=== PATIENT | male | born 2000 | race Caucasian/White ===

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

== ENCOUNTER 2022-08-14 01:00 | Inpatient (IN) | payer MEDICAID ==
[~2022-08-14] VITALS: Ht 175.3 cm; Wt 59.9 kg
[2022-08-14] MEDS ORDERED: MORPHINE SULFATE 4 MG/ML CPJ (NOT FOR IM USE) IV STA (01:08)
[2022-08-14] MEDS ORDERED: ONDANSETRON HCL 4MG/2ML INJ IV STA (01:08)
[2022-08-14] MEDS ORDERED: SODIUM CHLORIDE 0.9% 1,000 ML IV ONE (01:15)
[2022-08-14] MEDS ORDERED: CEFAZOLIN 1000MG PREMIX 50 ML IV ONE (01:15)
[2022-08-14] MEDS ORDERED: LIDOCAINE HCL 1% 20ML VIAL (Pyxis) INJ INFIL ONE (01:15)
[2022-08-14] MEDS ORDERED: BACITRACIN ZINC OINT UDPKT TOP ONE (01:15)
[2022-08-14] MEDS ORDERED: TETANUS, DIPHTHERIA, PERTUSSIS VAC/PF 0.5ML (>10YR OLD) IM ONE (01:15)
[2022-08-14 01:46] LABS: CHLORIDE 111 mEq/L (98-107)
[2022-08-14] MEDS ORDERED: FENTANYL CITRATE/PF 50MCG/ML 2ML VIAL IV NR (02:30)
[2022-08-14] MEDS ORDERED: FENTANYL CITRATE/PF 50MCG/ML 2ML VIAL IV ONE (02:30)
[2022-08-14 03:03] LABS: BASOPHILS % 0.3 % (0.0-2.0); EOSINOPHILS % 0.4 % (0.0-5.0); HEMATOCRIT. 46.2 % (42.0-52.0); HEMOGLOBIN. 15.3 g/dL (14.0-18.0); MEAN CORPUSCULAR HEMOGLOBIN 31.4 pg (28.0-32.0); MEAN CORPUSCULAR VOLUME 94.6 fL (80.0-94.0); MONOCYTES % 3.6 % (2.0-8.0); NEUTROPHILS % 79.7 % (40.0-76.0); PLATELET 256 x1000/uL (130-400); RED BLOOD CELL COUNT 4.88 mill/uL (4.7-6.1); RED CELL DISTRIBUTION WIDTH 12.6 % (11.6-14.6)
[2022-08-14] MEDS ORDERED: IPRATROPIUM/ALBUTEROL 0.5-3(2.5)MG/3ML NEB HHN PRN (08:15)
[2022-08-14] MEDS ORDERED: MAGNESIUM/ALUMINUM HYDROXIDE/SIMETHICONE 30ML UDC PO PRN (08:15)
[2022-08-14] MEDS ORDERED: ONDANSETRON HCL 4MG/2ML INJ IV PRN ×3 (08:15→19:00)
[2022-08-14] MEDS ORDERED: ACETAMINOPHEN 325MG TABLET PO PRN ×2 (08:15)
[2022-08-14] MEDS ORDERED: GUAIFENESIN 200MG/10ML SUGAR FREE UDC PO PRN (08:15)
[2022-08-14] MEDS ORDERED: DOCUSATE SODIUM 100MG CAPSULE PO PRN (08:15)
[2022-08-14] MEDS ORDERED: LORAZEPAM 2MG/ML CPJ IV PRN (08:15)
[2022-08-14] MEDS ORDERED: CLONIDINE 0.1MG TABLET PO PRN (08:15)
[2022-08-14] MEDS ORDERED: NALOXONE HCL 0.4MG/ML VIAL IV PRN (08:30)
[2022-08-14] MEDS: MORPHINE SULFATE 2 MG/ML CPJ (NOT FOR IM USE) IV PRN ×2 (09:28→14:04)
[2022-08-14] MEDS ORDERED: SKIN ADHESIVE 0.7 GM EA TOP ONE (14:51)
[2022-08-14] MEDS ORDERED: VANCOMYCIN HCL 1 GM/VIAL ONE (14:51)
[2022-08-14] MEDS ORDERED: LIDOCAINE HCL/EPINEPHRINE 1%-EPI 1:100,000 20 ML VIAL ONE (14:51)
[2022-08-14] MEDS ORDERED: POLYMYXIN B SULFATE 500000 UNITS/VIAL ONE (14:51)
[2022-08-14] MEDS ORDERED: DEXT 5%/0.9% NACL 1,000 ML IV ONE (15:15)
[2022-08-14] MEDS ORDERED: ONDANSETRON HCL 4MG/2ML INJ ONE (17:04)
[2022-08-14] MEDS ORDERED: DEXAMETHASONE 4MG/ML 1ML VIAL ONE (17:04)
[2022-08-14] MEDS ORDERED: ROCURONIUM BROMIDE 10MG/ML VIAL 5ML IV ONE (17:04)
[2022-08-14] MEDS ORDERED: SUCCINYLCHOLINE CHLORIDE 200MG/10ML IV ONE (17:04)
[2022-08-14] MEDS ORDERED: PROPOFOL 200MG/20ML VIAL IV ONE (17:05)
[2022-08-14] MEDS ORDERED: NEOSTIGMINE METHYLSULFATE 1MG/ML 10 ML VIAL ONE (17:05)
[2022-08-14] MEDS ORDERED: GLYCOPYRROLATE 0.2 MG/ML 2ML VIAL ONE ×2 (17:05→17:06)
[2022-08-14] MEDS ORDERED: LIDOCAINE HCL 1% 10 MG/ML 10ML VIAL ONE (17:05)
[2022-08-14] MEDS ORDERED: MIDAZOLAM HCL 2 MG/2 ML VIAL ONE (17:06)
[2022-08-14] MEDS ORDERED: FENTANYL CITRATE/PF 50MCG/ML 2ML VIAL ONE (17:06)
[2022-08-14] MEDS ORDERED: MEPERIDINE HCL/PF 25MG/ML CPJ IV PRN (17:30)
[2022-08-14] MEDS ORDERED: HYDROMORPHONE HCL/PF 2MG/ML CPJ IV PRN ×3 (17:30→23:30)
[2022-08-14] MEDS ORDERED: LABETALOL 5MG/ML SYR 20 MG/4 ML SYRINGE IV PRN (17:30)
[2022-08-14] MEDS ORDERED: HYDROMORPHONE HCL/PF 2MG/ML CPJ ONE (17:48)
[2022-08-14] MEDS ORDERED: HYDROCODONE/ACETAMINOPHEN 5/325MG TABLET PO PRN (19:00)
[2022-08-15] VITALS: BP 130/73
[2022-08-15] MEDS: CEFAZOLIN 1000MG PREMIX 50 ML IV SCH ×4 (00:14→23:02)
[2022-08-15] MEDS: HYDROCODONE/ACETAMINOPHEN 5/325MG TABLET PO PRN ×4 (01:16→19:13)
[2022-08-15 07:06] LABS: HEMATOCRIT. 34.4 % (42.0-52.0); HEMOGLOBIN. 12.2 g/dL (14.0-18.0); MEAN CORPUSCULAR HEMOGLOBIN 32.9 pg (28.0-32.0); MEAN CORPUSCULAR VOLUME 93.2 fL (80.0-94.0); MEAN PLATELET VOLUME 9.2 fl (7.4-10.4); PLATELET 197 x1000/uL (130-400); RED CELL DISTRIBUTION WIDTH 12.1 % (11.6-14.6)
[2022-08-15] MEDS: ENOXAPARIN 40MG/0.4ML SYR SUBCUT SCH (09:22)
[2022-08-15 09:53] LABS: CHLORIDE 101 mEq/L (98-107)
[2022-08-15 10:16] LABS: HDL CHOLESTEROL 69 mg/dL (40-59); LDL CHOLESTEROL 53 mg/dL (5-100)
[2022-08-15 12:00] VITALS: BP 111/54
[2022-08-15] MEDS ORDERED: IPRATROPIUM BROMIDE (0.02%) 0.5MG/2.5ML NEB HHN PRN (13:15)
[2022-08-15] MEDS ORDERED: ALBUTEROL (0.083%) 2.5MG/3ML NEB HHN PRN (13:15)
[2022-08-15 16:00] VITALS: BP 126/51
[2022-08-15 20:00] VITALS: BP 125/50
[2022-08-15 20:57] LABS: PLATELET ESTIMATE NORMAL
[2022-08-15] MEDS ORDERED: INFLUENZA VACCINE 05/PF 0.5 ML SYRINGE IM ONE (21:00)
[2022-08-16] VITALS: BP 127/52
[2022-08-16] MEDS: HYDROCODONE/ACETAMINOPHEN 5/325MG TABLET PO PRN ×3 (00:32→14:51)
[2022-08-16 04:00] VITALS: BP 120/65
[2022-08-16 08:00] VITALS: BP 137/70
[2022-08-16 08:34] LABS: BASOPHILS % 0.3 % (0.0-2.0); EOSINOPHILS % 0.6 % (0.0-5.0); HEMATOCRIT. 32.2 % (42.0-52.0); LYMPHOCYTES % 34.1 % (20.0-50.0); MEAN CORPUSCULAR HEMOGLOBIN 32.2 pg (28.0-32.0); MEAN CORPUSCULAR VOLUME 94.6 fL (80.0-94.0); MEAN PLATELET VOLUME 9.5 fl (7.4-10.4); MONOCYTES % 6.7 % (2.0-8.0); NEUTROPHILS % 58.3 % (40.0-76.0); PLATELET 168 x1000/uL (130-400); RED BLOOD CELL COUNT 3.41 mill/uL (4.7-6.1); RED CELL DISTRIBUTION WIDTH 12.3 % (11.6-14.6)
[2022-08-16 08:55] LABS: CHLORIDE 107 mEq/L (98-107)
[2022-08-16] MEDS: ENOXAPARIN 40MG/0.4ML SYR SUBCUT SCH (08:58)
[2022-08-16 12:00] VITALS: BP 134/60
[2022-08-16] MEDS ORDERED: TOPUD PO (12:04)
[2022-08-16] MEDS ORDERED: ENOX40DI8 SUBCUT (12:04)
[2022-08-16 16:00] VITALS: BP 101/53
[2022-08-16 16:38] VITALS: BP 134/60
== END 2022-08-16 17:29 | disposition home health service (06) | DRG 308 ==
LOC: ER 01:00 → MICUSO 05:13 → EDBEDREQSVC 05:24 → EDBEDREQTM 05:24 → EDBEDREQ 05:24 → SUPCPDRO 07:13 → 6EST 22:03
PROVIDERS: ADMIT Internal Medicine; ATTEND Internal Medicine
PROC: 0QS806Z Reposition Right Femoral Shaft with Intramedullary Internal Fixation Device, Open Approach (ICD-10-PCS; principal; 2022-08-14)
DX: S72.301A Unspecified fracture of shaft of right femur, initial encounter for closed fracture (principal); S09.90XA Unspecified injury of head, initial encounter; D72.829 Elevated white blood cell count, unspecified; Z20.822 Contact with and (suspected) exposure to COVID-19; Z28.310 Unvaccinated for COVID-19; Y08.89XA Assault by other specified means, initial encounter; Y93.01 Activity, walking, marching and hiking; Y92.89 Other specified places as the place of occurrence of the external cause; Y99.8 Other external cause status
CPT/HCPCS: 36415; 70486; 71260; 72170; 73552; 74177; 76000; 80053; 80061; 85025; 85379; 86850; 86900; 87426; 90686; 90715; 93970; 97116; 97162; 97166; 97530; 97535; 99291; C9803; J0330; J0690; J1100; J1170; J1650; J2060; J2250; J2270; J2405; J2704; J2710; J3010; J3370; J3490; J7030; C1713

== ENCOUNTER 2025-04-03 12:58 | Emergency (ER) | payer MEDICAID, OTHER ==
[~2025-04-03] VITALS: Ht 177.8 cm; Wt 79.0 kg
[~2025-04-03 12:58] MED LIST changes: +ENOX40DI8 SUBCUT; +TOPUD PO; -[UNRECOGNIZED DRUG - REMARK]
[2025-04-03 13:01] VITALS: O2SAT 97
[2025-04-03 13:07] VITALS: TEMP 36.7; O2SAT 100
[2025-04-03] MEDS ORDERED: IBUP-2028 MT (15:26)
[2025-04-03] MEDS ORDERED: ACET-2708 MT (15:26)
[2025-04-03 15:37] VITALS: BP 149/99; PULSE 86; RESP 18
[2025-04-03] MEDS: KETOROLAC 30MG/ML VIAL IM ONE (15:37)
== END 2025-04-03 16:11 | disposition home or self-care (01) ==
LOC: ER 12:58
DX: S52.222A Displaced transverse fracture of shaft of left ulna, initial encounter for closed fracture (principal); X58.XXXA Exposure to other specified factors, initial encounter; Y93.89 Activity, other specified; Y92.89 Other specified places as the place of occurrence of the external cause; Y99.8 Other external cause status
CPT/HCPCS: 99283; 73090; 29240; 96372; J1885; A6449